=== PATIENT | female | born 1995 | race African-American/Black ===

== ENCOUNTER 2017-07-18 13:36 | Emergency (ER) | payer MEDICAID, OTHER ==
[~2017-07-18] VITALS: Ht 165.1 cm; Wt 68.0 kg
[~2017-07-18 13:36] MED LIST: ALBU6.7H
[2017-07-18] MEDS ORDERED: PREDNISONE 20MG TABLET PO STA (15:06)
[2017-07-18] MEDS ORDERED: IPRATROPIUM/ALBUTEROL 0.5-3(2.5)MG/3ML NEB HHN ONE ×2 (15:15→15:45)
[2017-07-18] MEDS ORDERED: METHYLPREDNISOLONE SOD SUCC 125 MG/2 ML VIAL IM STA (16:35)
[2017-07-18 17:00] VITALS: BP 129/81
== END 2017-07-18 18:01 | disposition home or self-care (01) ==
LOC: ER 15:45
DX: J45.901 Unspecified asthma with (acute) exacerbation (principal)
CPT/HCPCS: 94640; 96372; 99284; J2930; J7512; J7620

== ENCOUNTER 2018-11-09 13:26 | Emergency (ER) | payer MEDICAID, OTHER | END 2018-11-09 17:27 | disposition left against medical advice (07) | LOC: ER 13:26 | DX: Z53.21 Procedure and treatment not carried out due to patient leaving prior to being seen by health care provider (principal) ==

== ENCOUNTER 2021-09-05 15:12 | Emergency (ER) | payer MEDICAID ==
[~2021-09-05 15:12] MED LIST changes: -ALBU6.7H; +ALBU6.7H15
== END 2021-09-05 15:50 | disposition left against medical advice (07) ==
LOC: ER 15:12
DX: M54.2 Cervicalgia (principal); Z53.21 Procedure and treatment not carried out due to patient leaving prior to being seen by health care provider

== ENCOUNTER 2021-11-15 13:10 | Emergency (ER) | payer MEDICAID ==
[~2021-11-15] VITALS: Ht 165.1 cm; Wt 72.0 kg
[2021-11-15] MEDS ORDERED: KETOROLAC 60MG/2ML VIAL IM ONE (13:15)
[2021-11-15] MEDS ORDERED: NAPR-681 MT (14:08)
[2021-11-15 15:08] VITALS: BP 128/81
== END 2021-11-15 15:28 | disposition home or self-care (01) ==
LOC: ER 13:10
DX: S83.203A Other tear of unspecified meniscus, current injury, right knee, initial encounter (principal); X50.1XXA Overexertion from prolonged static or awkward postures, initial encounter; J45.909 Unspecified asthma, uncomplicated; W18.30XA Fall on same level, unspecified, initial encounter; Y93.51 Activity, roller skating (inline) and skateboarding; Y92.9 Unspecified place or not applicable
CPT/HCPCS: 29505; 73562; 96372; 99283; J1885